=== PATIENT | male | born 1945 | race Caucasian/White ===

== ENCOUNTER 2016-07-07 23:57 | Observation (INO) | payer MEDICARE, BC ==
[~2016-07-07] VITALS: Ht 172.7 cm; Wt 58.3 kg
[~2016-07-07 23:57] MED LIST: ANACIN; CIPRO 500MG TA500 MG PO; CIPRO500 MG PO; DULCOLAX10 MG RC; EXCEDRIN TENSION HA PO; FLOMAX0.4 MG PO; NO HOME MEDICATIONS; PEPCID 20MG TAB20 MG PO; PERCOCET 325 MG1 TA2 PO; PHENERGAN 25 TA25 MG PO; PHENERGAN25 MG/SUPP RC; PRIL40
[2016-07-08] VITALS (10 sets, daily range): BP systolic 107–126; BP diastolic 56–63; PULSE 42–63; TEMP 97.5–98
[2016-07-08 00:26] LABS: BASO # 0.1 (0.0-0.2); BASO % 0.5 % (0.0-2.0); EOS # 0.8 (0.0-0.7); EOS % 5.6 % (0-4.0); GRAN # 7.7 (1.4-6.5); GRAN % 57.8 % (42.2-75.2); HEMATOCRIT 43.3 % (42.0-52.0); HEMOGLOBIN 14.8 g/dl (13.5-18.0); LYMPH # 3.6 (1.2-3.4); LYMPH % 26.7 % (20.0-51.0); MEAN CELL VOLUME 102 fl (80.0-100.0); MEAN CORPUSCULAR HEMOGLOBIN 35 pg (27.0-31.0); MEAN CORPUSCULAR HGB CONC 34 g/dl (33.0-37.0); MEAN PLATELET VOLUME 9.2 fl (7.4-10.4); MONO # 1.2 (0.1-0.6); PLATELET COUNT 347 K/mm3 (130-400); RED BLOOD COUNT 4.24 M/mm3 (4.20-5.60); REDCELL DISTRIBUTION WIDTH-CV 13.9 % (11.5-14.5); WHITE BLOOD COUNT 13.3 K/mm3 (4.8-10.8)
[2016-07-08 00:38] LABS: ADJUSTED CALCIUM 9.5 mg/dL (8.4-10.2); ALBUMIN 4.3 gm/dL (3.5-5.0); BILIRUBIN,TOTAL 0.8 mg/dL (0.0-1.0); CALCIUM 9.7 mg/dL (8.4-10.2); CREATININE, serum 1.38 mg/dL (0.66-1.25); TOTAL PROTEIN 7.1 gm/dL (6.4-8.2)
[2016-07-08 04:05] LABS: PH 5 (5-8); SQUAMOUS EPITHELIAL None Seen /hpf; URINE APPEARANCE Clear; URINE BACTERIA None Seen /hpf; URINE BILIRUBIN Negative (NEGATIVE); URINE BLOOD 3+ (NEGATIVE); URINE COLOR Yellow; URINE GLUCOSE Negative (NEGATIVE); URINE KETONE Negative (NEGATIVE); URINE RBC >50 /hpf; URINE UROBILINOGEN Negative (NEGATIVE)
== END 2016-07-08 11:37 | disposition home or self-care (01) ==
LOC: COL.ER 23:57 → MEDICAL 07-08 01:57
PROVIDERS: Emergency Medicine
DX: N20.1 Calculus of ureter (principal); F17.210 Nicotine dependence, cigarettes, uncomplicated
CPT/HCPCS: C1769; C2617; G0378; J0690; J0696; J1100; J1170; J2405; J2704; J2765; J3010; J7030; J7120; Q9967

== ENCOUNTER 2016-07-15 07:30 | Inpatient (IN) | payer MEDICARE, BC ==
[~2016-07-15] VITALS: Ht 172.7 cm; Wt 60.5 kg
[2016-07-15 08:13] LABS: HEMATOCRIT 46.8 % (42.0-52.0); HEMOGLOBIN 16.1 g/dl (13.5-18.0); MEAN CELL VOLUME 100 fl (80.0-100.0); MEAN CORPUSCULAR HEMOGLOBIN 34 pg (27.0-31.0); MEAN CORPUSCULAR HGB CONC 34 g/dl (33.0-37.0); MEAN PLATELET VOLUME 9.2 fl (7.4-10.4); PLATELET COUNT 367 K/mm3 (130-400); RED BLOOD COUNT 4.68 M/mm3 (4.20-5.60); REDCELL DISTRIBUTION WIDTH-CV 13.7 % (11.5-14.5)
[2016-07-15 08:27] LABS: ADJUSTED CALCIUM 9.5 mg/dL (8.4-10.2); ALBUMIN 4.5 gm/dL (3.5-5.0); BILIRUBIN,TOTAL 1.1 mg/dL (0.0-1.0); C-REACTIVE PROTEIN 6.4 mg/dL (0.0-0.9); CALCIUM 9.9 mg/dL (8.4-10.2); CREATININE, serum 1.08 mg/dL (0.66-1.25); TOTAL PROTEIN 7.8 gm/dL (6.4-8.2)
[2016-07-15 08:29] LABS: WHITE BLOOD COUNT 26.3 K/mm3 (4.8-10.8)
[2016-07-15 08:30] LABS: ADD PATHOLOGY DIFF REVIEW NO
[2016-07-15 08:36] LABS: POTASSIUM 4.3 mmol/L (3.4-5.0)
[2016-07-15 10:01] LABS: PH 5 (5-8); SQUAMOUS EPITHELIAL 0-2 /hpf; URINE APPEARANCE Hazy; URINE BACTERIA None Seen /hpf; URINE BILIRUBIN Negative (NEGATIVE); URINE BLOOD 3+ (NEGATIVE); URINE COLOR Yellow; URINE GLUCOSE Negative (NEGATIVE); URINE KETONE 1+ (NEGATIVE); URINE RBC >50 /hpf; URINE UROBILINOGEN Negative (NEGATIVE)
[2016-07-15 10:50] LABS: BAND 33 % (0-10); NEUTROPHILS 51 % (42.0-75.2); PLATELET ESTIMATE INCREASED (NORMAL); TOTAL CELLS COUNTED 100
[2016-07-15 11:04] VITALS: BP 116/62; PULSE 73; TEMP 98.4
[2016-07-15] MEDS ORDERED: FOSAMAX 70MG TA70 MG PO (11:24)
[2016-07-15] MEDS ORDERED: INFANTS AQU400 IU/ML PO (11:25)
[2016-07-15] MEDS ORDERED: EXCEDRIN TENSIO1 TAB PO (11:26)
[2016-07-15 17:37] VITALS: BP 103/49; PULSE 69; TEMP 99.4
[2016-07-15 18:25] VITALS: BP 100/50; PULSE 63; TEMP 98.6
[2016-07-15 20:37] VITALS: BP 105/57; PULSE 67; TEMP 98.5
[2016-07-15 23:55] VITALS: BP 108/55; PULSE 65; TEMP 98
[2016-07-16 03:41] VITALS: BP 126/62; PULSE 63; TEMP 97.4
[2016-07-16 07:28] LABS: BASO % 0.2 % (0.0-2.0); EOS # 0.3 (0.0-0.7); EOS % 1.8 % (0-4.0); GRAN # 12.1 (1.4-6.5); GRAN % 80.4 % (42.2-75.2); LYMPH # 1.1 (1.2-3.4); LYMPH % 7.2 % (20.0-51.0); MEAN CELL VOLUME 104 fl (80.0-100.0); MEAN CORPUSCULAR HGB CONC 33 g/dl (33.0-37.0); MEAN PLATELET VOLUME 9.6 fl (7.4-10.4); MONO # 1.5 (0.1-0.6); MONO % 9.9 % (1.7-9.3); PLATELET COUNT 280 K/mm3 (130-400); RED BLOOD COUNT 3.47 M/mm3 (4.20-5.60); REDCELL DISTRIBUTION WIDTH-CV 14.2 % (11.5-14.5)
[2016-07-16 07:43] LABS: HEMATOCRIT 35.9 % (42.0-52.0); HEMOGLOBIN 11.9 g/dl (13.5-18.0); MEAN CORPUSCULAR HEMOGLOBIN 34 pg (27.0-31.0)
[2016-07-16 07:52] LABS: CREATININE, serum 0.81 mg/dL (0.66-1.25); POTASSIUM 3.4 mmol/L (3.4-5.0)
[2016-07-16 09:27] VITALS: BP 91/67; PULSE 71; TEMP 98.5
[2016-07-16 13:56] VITALS: BP 105/59; PULSE 55
[2016-07-16 18:00] VITALS: BP 116/58; PULSE 63; TEMP 97.9
[2016-07-16 22:48] VITALS: BP 126/68; PULSE 65; TEMP 97.5
[2016-07-17 03:00] VITALS: BP 121/73; PULSE 50; TEMP 98.6
[2016-07-17 04:37] VITALS: BP 150/78; PULSE 51; TEMP 98
[2016-07-17 07:25] LABS: BASO % 0.3 % (0.0-2.0); EOS # 0.5 (0.0-0.7); EOS % 4.6 % (0-4.0); GRAN # 6.6 (1.4-6.5); GRAN % 66.8 % (42.2-75.2); LYMPH # 1.6 (1.2-3.4); LYMPH % 16.6 % (20.0-51.0); MEAN CELL VOLUME 103 fl (80.0-100.0); MEAN CORPUSCULAR HEMOGLOBIN 34 pg (27.0-31.0); MEAN CORPUSCULAR HGB CONC 33 g/dl (33.0-37.0); MEAN PLATELET VOLUME 9.7 fl (7.4-10.4); MONO # 1.1 (0.1-0.6); MONO % 11.4 % (1.7-9.3); PLATELET COUNT 295 K/mm3 (130-400); REDCELL DISTRIBUTION WIDTH-CV 14.4 % (11.5-14.5); WHITE BLOOD COUNT 9.9 K/mm3 (4.8-10.8)
[2016-07-17 09:21] VITALS: BP 129/67; PULSE 63; TEMP 97.9
[2016-07-17] MEDS ORDERED: NORCO 325 MG-51 TAB PO (11:19)
[2016-07-17] MEDS ORDERED: CEFTIN500 MG PO (11:21)
== END 2016-07-17 13:00 | disposition home or self-care (01) | DRG 871 ==
LOC: COL.ER 07:30 → SURG 10:26
PROVIDERS: Emergency Medicine; Nurse Practitioner Family
DX: A41.9 Sepsis, unspecified organism (principal); E43 Unspecified severe protein-calorie malnutrition; N39.0 Urinary tract infection, site not specified; F17.210 Nicotine dependence, cigarettes, uncomplicated; R19.7 Diarrhea, unspecified; Z87.442 Personal history of urinary calculi; Z68.20 Body mass index [BMI] 20.0-20.9, adult
CPT/HCPCS: 99222-AI; 99232-AI; 99239; J1170; J1650; J2405; J2543; J7030; J7050; Q9967

== ENCOUNTER 2017-04-27 07:35 | Emergency (ER) | payer MEDICARE, BC ==
[~2017-04-27] VITALS: Ht 172.7 cm; Wt 61.4 kg
[~2017-04-27 07:35] MED LIST changes: +CEFTIN500 MG PO; +EXCEDRIN TENSIO1 TAB PO; +FOSAMAX 70MG TA70 MG PO; +INFANTS AQU400 IU/ML PO; +NORCO 325 MG-51 TAB PO
[2017-04-27 08:01] LABS: BASO # 0.1 (0.0-0.2); BASO % 0.6 % (0.0-2.0); EOS # 0.2 (0.0-0.7); EOS % 2.8 % (0-4.0); GRAN % 71.3 % (42.2-75.2); HEMATOCRIT 44.4 % (42.0-52.0); HEMOGLOBIN 14.9 g/dl (13.5-18.0); LYMPH # 1.4 (1.2-3.4); LYMPH % 16.2 % (20.0-51.0); MEAN CELL VOLUME 103 fl (80.0-100.0); MEAN CORPUSCULAR HEMOGLOBIN 35 pg (27.0-31.0); MEAN CORPUSCULAR HGB CONC 34 g/dl (33.0-37.0); MONO # 0.8 (0.1-0.6); MONO % 8.9 % (1.7-9.3); PLATELET COUNT 403 K/mm3 (130-400); RED BLOOD COUNT 4.31 M/mm3 (4.20-5.60); REDCELL DISTRIBUTION WIDTH-CV 13.2 % (11.5-14.5)
[2017-04-27 08:05] LABS: PROTHROMBIN TIME 11.5 SECONDS (9.7-12.8)
[2017-04-27 08:07] LABS: PARTIAL THROMBOPLASTIN TIME 32.4 SECONDS (26.0-37.0)
[2017-04-27 08:09] LABS: ALANINE AMINOTRANSFERASE 29 U/L (21-72); ALBUMIN 4.3 gm/dL (3.5-5.0); ALKALINE PHOSPHATASE 73 U/L (50-136); ANION GAP 5 mmol/L (7-16); AST,SGOT 19 U/L (15-37); BILIRUBIN,TOTAL 0.7 mg/dL (0.0-1.0); BLOOD UREA NITROGEN 19 mg/dL (9-20); CALCIUM 9.5 mg/dL (8.4-10.2); CARBON DIOXIDE 28 mmol/L (22-30); CHLORIDE 107 mmol/L (98-107); CREATININE, serum 0.85 mg/dL (0.66-1.25); GLUCOSE 100 mg/dL (74-106); POTASSIUM 4.2 mmol/L (3.4-5.0); SODIUM 140 mmol/L (137-145); TOTAL PROTEIN 7.3 gm/dL (6.4-8.2)
[2017-04-27 08:24] LABS: TROPONIN-I < 0.012 ng/mL (0.000-0.034)
[2017-04-27] MEDS ORDERED: AMOXICILLIN 8751 TAB PO (09:19)
[2017-04-27] MEDS ORDERED: PREDNISONE10 MG PO (09:19)
[2017-04-27 10:28] VITALS: BP 140/74; PULSE 50; TEMP 98.2
== END 2017-04-27 10:31 | disposition home or self-care (01) ==
LOC: COL.ER 07:35
PROVIDERS: Family Medicine
DX: J32.0 Chronic maxillary sinusitis (principal); R00.1 Bradycardia, unspecified; R07.89 Other chest pain; R42 Dizziness and giddiness; R26.89 Other abnormalities of gait and mobility; F17.210 Nicotine dependence, cigarettes, uncomplicated; Z87.442 Personal history of urinary calculi
CPT/HCPCS: J7030

== ENCOUNTER → 2018-03-08 | Outpatient (CLI) | payer MEDICARE, BC ==
[~2018-03-08] MED LIST changes: +AMOXICILLIN 8751 TAB PO; +PREDNISONE10 MG PO
== END ==
LOC: COL.RAD 08:45
DX: I72.3 Aneurysm of iliac artery (principal); I71.4 Abdominal aortic aneurysm, without rupture

== ENCOUNTER 2018-07-18 18:41 | Emergency (ER) | payer OTHER, MEDICARE, BC ==
[~2018-07-18] VITALS: Ht 172.7 cm; Wt 58.8 kg
[2018-07-18 18:57] VITALS: BP 125/74; TEMP 97
[2018-07-18] MEDS ORDERED: FLEXERIL 1010 MG/TAB PO (20:06)
[2018-07-18] MEDS ORDERED: NORCO 325 MG-51 TAB PO (20:06)
[2018-07-18 20:30] VITALS: PULSE 83
== END 2018-07-18 20:35 | disposition home or self-care (01) ==
LOC: COL.ER 18:41
DX: S13.4XXA Sprain of ligaments of cervical spine, initial encounter (principal); S00.93XA Contusion of unspecified part of head, initial encounter; S20.212A Contusion of left front wall of thorax, initial encounter; F17.210 Nicotine dependence, cigarettes, uncomplicated; V43.52XA Car driver injured in collision with other type car in traffic accident, initial encounter
CPT/HCPCS: A9284

== ENCOUNTER → 2019-03-26 | Outpatient (CLI) | payer MEDICARE, BC ==
[~2019-03-26] MED LIST changes: +FLEXERIL 1010 MG/TAB PO
== END ==
LOC: COL.RAD 09:14
DX: I71.4 Abdominal aortic aneurysm, without rupture (principal)

== ENCOUNTER 2021-11-23 05:30 | Emergency (ER) | payer MEDICARE, BC ==
[~2021-11-23] VITALS: Ht 172.7 cm; Wt 56.8 kg
[2021-11-23 05:32] VITALS: TEMP 97.9
[2021-11-23 05:58] LABS: BASO # 0.1 K/mm3 (0.0-0.2); BASO % 0.5 % (0.0-2.0); EOS # 0.5 K/mm3 (0.0-0.7); EOS % 5.6 % (0.0-4.0); GRAN # 6.1 K/mm3 (1.4-6.5); GRAN % 65.8 % (42.2-75.2); HEMATOCRIT 46.6 % (42.0-52.0); HEMOGLOBIN 15.5 g/dl (13.5-18.0); LYMPH # 1.7 K/mm3 (1.2-3.4); LYMPH % 18.7 % (20.0-51.0); MEAN CELL VOLUME 105 fl (80.0-100.0); MEAN CORPUSCULAR HEMOGLOBIN 35 pg (27-31); MEAN CORPUSCULAR HGB CONC 33 g/dl (33.0-37.0); MEAN PLATELET VOLUME 8.7 fl (7.4-10.4); MONO # 0.9 K/mm3 (0.1-0.6); MONO % 9.1 % (1.7-9.3); PLATELET COUNT 351 K/mm3 (130-400); RED BLOOD COUNT 4.43 M/mm3 (4.20-5.60); REDCELL DISTRIBUTION WIDTH-CV 14.2 % (11.5-14.5)
[2021-11-23 06:06] LABS: COLLECTION METHOD CLEAN CATCH
[2021-11-23 06:13] LABS: CALCIUM 9.7 mg/dL (8.4-10.2); CREATININE, serum 0.94 mg/dL (0.72-1.25); POTASSIUM 3.9 mmol/L (3.5-4.5)
[2021-11-23 06:16] LABS: MUCOUS Present (NOT PRESENT); SQUAMOUS EPITHELIAL None Seen /hpf (0-10); URINE BACTERIA None Seen /hpf (NONE SEEN)
[2021-11-23 06:17] LABS: URINE APPEARANCE Clear (CLEAR/HAZY); URINE COLOR Yellow (YELLOW); URINE GLUCOSE Negative (NEGATIVE); URINE KETONE TRACE (NEGATIVE); URINE PROTEIN(semi-quant) 1+ (NEGATIVE)
[2021-11-23 06:18] LABS: URINE BLOOD 2+ (NEGATIVE); URINE NITRATE Negative (NEGATIVE); URINE UROBILINOGEN 0.2 E.U/dL (0.2-1.0)
[2021-11-23 08:37] VITALS: BP 106/75; PULSE 55
== END 2021-11-23 08:37 | disposition home or self-care (01) ==
LOC: COL.ER 05:30
PROVIDERS: Emergency Medicine
DX: R10.9 Unspecified abdominal pain (principal); R31.9 Hematuria, unspecified; N50.819 Testicular pain, unspecified; M54.50 Low back pain, unspecified; F17.200 Nicotine dependence, unspecified, uncomplicated; Z87.442 Personal history of urinary calculi; Z76.89 Persons encountering health services in other specified circumstances; Z98.890 Other specified postprocedural states
CPT/HCPCS: J1170; J1885; J2270; J2405; Q9967

== ENCOUNTER → 2023-04-05 | Outpatient (CLI) | payer MEDICARE, BC ==
[~2023-04-05] MED LIST changes: +ASPIRIN 81M81 MG/TA2 PO; +ASPIRIN E.C. 8181 MG PO; +BACTRIM DS 8001 TAB PO; +CELLCEPT 5500 MG/TAB PO; +CEPHALEXIN500 M1 PO; +LASIX 40MG TABL40 MG PO; +LIPITOR 40MG TA40 MG PO; +PREDNISONE20 MG PO; +PROTONIX 40MG T40 MG PO; +TOPROL XL 25MG25 MG PO
== END ==
LOC: COL.RAD 13:21
DX: I77.810 Thoracic aortic ectasia (principal); I25.10 Atherosclerotic heart disease of native coronary artery without angina pectoris; C44.321 Squamous cell carcinoma of skin of nose; J43.9 Emphysema, unspecified
CPT/HCPCS: Q9967